=== PATIENT | female | born 1995 | race Caucasian/White ===

== ENCOUNTER 2020-01-25 15:49 | Day surgery (SDC) | payer BC ==
[2020-01-25] MEDS ORDERED: hydrALAZINE 20 MG/ML VIAL SLOW IVP PRN (15:52)
[2020-01-25 16:02] VITALS: BP 127/89; TEMP 98.7; BMI 28.5
[2020-01-25 16:23] LABS: Amnisure Internal Control QC ACCEPTABLE (ACCEPTABLE); Amnisure Test No Membranes Rupture (No Rupture)
--- NOTE | 2020-01-25 17:10 | PDOC.LDHP ---
Labor and Delivery H&P Chief complaint: loss of fluid HPI: 24 y/o G1 at 38w1d, patient of Dr. Lemus, presents with ?LOF since . She reports several episodes of a small amount of wetness in her underwear since that time. Denies large gush or constant leaking. Denies VB, ctx, or decreased FM. ROS neg for HEENT, cv, pulm, gi, gu, neuro, psych, skin, musculoskeletal or constitutional symptoms other than mentioned above. OB History Details: First Current complications: none Past Medical History: None Current medications: pre-jona vitamins Previous surgical history: other (tonsillectomy, left knee) Allergies/Adverse Reactions: Allergies Allergy/AdvReac Type Severity Reaction Status Date / Time No Known Allergies Allergy Verified 01/25/20 15:56 Social history: none - Physical Exam Vital signs reviewed and normal: yes General: NAD, resting Lungs: nonlabored breathing Abdomen: gravid Extremeties: no edema FHT: category 1 (140s, mod variability, + accels, no decels) [place] contractions every: intermittent - Vaginal Exam cm dilated: 3 Effacement: 50% Station: -2 - Assessment 24 y/o G1 at 38w1d with no e/o SROM. Amnisure neg, no pooling, neg valsalva. Bedside ultrasound performed with normal DARLENE (11cm). status reassuring with reactive NST. - Plan -: D/c home with precautions. Advised to keep all appointments.
== END 2020-01-25 17:05 | disposition home or self-care (01) ==
LOC: L&D/OP 15:49
PROVIDERS: ATTEND Obstetrics & Gynecology
DX: O99.89 Other specified diseases and conditions complicating pregnancy, childbirth and the puerperium (principal); N89.8 Other specified noninflammatory disorders of vagina; Z3A.38 38 weeks gestation of pregnancy
CPT/HCPCS: 84112

== ENCOUNTER 2020-02-03 21:42 | Day surgery (SDC) | payer BC ==
[2020-02-03 22:27] VITALS: BMI 28.5
[2020-02-03] MEDS ORDERED: hydrALAZINE 20 MG/ML VIAL SLOW IVP PRN (23:30)
--- NOTE | 2020-02-04 00:25 | PRG ---
DATE OF SERVICE: 02/03/2020 [employer]: Ramon Lemus DO, MS. CHIEF COMPLAINT: Abdominal pains. HISTORY OF PRESENT ILLNESS: The patient is a 24-year-old G1, P0 female with an intrauterine at 39 weeks and 3 days, presenting to Labor and Delivery with uterine contractions. She reports that prior to coming, they were 3 to 5 minutes apart and were more intense. Since arriving, the patient reports the contractions have spaced some and are less intense. She denies any vaginal bleeding, but she does report a large amount of mucousy discharge the last several days. Has been having diarrhea off and on. She denies any other leakage of fluid. The patient also denies fever, headache, cough, chest pain, shortness of breath, nausea, vomiting, constipation, any new rashes. She does report some hip problems and lower back problems that she attributes to the . Denies urinary urgency or frequency. PAST MEDICAL HISTORY: Negative. PAST SURGICAL HISTORY: She has had tonsillectomy and has had a meniscectomy of her left knee. ALLERGIES: NO KNOWN DRUG ALLERGIES. MEDICATIONS: vitamins. SOCIAL HISTORY: Denies drug, alcohol, or tobacco use. OBSTETRICAL LABS: Blood type is Rh positive. Antibody screen is negative. VDRL is nonreactive. Hepatitis B surface antigen nonreactive, and HIV nonreactive in the 1st trimester. She is rubella immune. GC and chlamydia negative. Drug screen is negative. Diabetes screen is 99. Third trimester HIV and VDRL are negative. GBS is negative. REVIEW OF SYSTEMS: Per HPI. PHYSICAL EXAMINATION: VITAL SIGNS: Blood pressure 127/89, heart rate of 73, respiratory rate 18 saturating 98% on room air, temperature 98.4. GENERAL: She appears to be in no acute distress. She is alert, oriented, cooperative, and pleasant to interact with. HEAD: Normocephalic, atraumatic. LUNGS: Clear to auscultation bilaterally. HEART: Regular rate and rhythm. ABDOMEN: Gravid, soft, nontender. EXTREMITIES: Nontender, nonedematous. CERVICAL: Per nursing staff is 3, 50, and -2 station, unchanged from 9 days ago. heart tracing shows the fetus with a baseline in the 140s with moderate long-term variability, positive 15 x 15 accelerations. She is having contractions about every 2 minutes. ASSESSMENT AND PLAN: The patient is a 24-year-old G1, P0 female with an intrauterine at 39 weeks and 3 days, here to evaluate for labor. The patient is having regular painful contractions, but has no other evidence of active labor at this time. We will be watching her for the next 2 to 3 hours and we will reexamine her cervix and make disposition at that time. Fetus has a category 1 tracing and reactive NST. pt discharge home with no evidence of labor Job ID: [id number] [facility]
== END 2020-02-04 01:15 | disposition home or self-care (01) ==
LOC: L&D/OP 21:42
PROVIDERS: ATTEND Obstetrics & Gynecology
DX: O47.1 False labor at or after 37 completed weeks of gestation (principal); Z3A.39 39 weeks gestation of pregnancy
CPT/HCPCS: 99283

== ENCOUNTER 2020-02-05 05:14 | Inpatient (IN) | payer BC ==
[2020-02-05] MEDS ORDERED: Promethazine HCl 25 MG/ML VIAL IM PRN ×2 (05:39→06:31)
[2020-02-05] MEDS ORDERED: Misoprostol 200 MCG TAB PR PRN (05:39)
[2020-02-05] MEDS ORDERED: Carboprost 250 MCG/ML AMP IM PRN (05:39)
[2020-02-05] MEDS ORDERED: Ibuprofen 800 MG TAB PO PRN (05:39)
[2020-02-05] MEDS ORDERED: Acetaminophen 500 MG TAB PO PRN (05:39)
[2020-02-05] MEDS ORDERED: Ondansetron PF 4 MG/2 ML Vial IVP PRN ×3 (05:39→12:41)
[2020-02-05] MEDS ORDERED: HYDROcodone/Acetaminophen 5/325 mg Tablet PO PRN ×3 (05:39→12:41)
[2020-02-05] MEDS ORDERED: NS / Oxytocin 40 units/1000ml 1,000 ML IV PRN (05:39)
[2020-02-05] MEDS ORDERED: Diphenoxylate HCl/Atropine Tablet PO PRN (05:39)
[2020-02-05] MEDS ORDERED: Butorphanol Tartrate 1 MG/ML VIAL SLOW IVP PRN (05:39)
[2020-02-05] MEDS ORDERED: Lidocaine 1% (PF) 30 ML VIAL SC PRN (05:39)
[2020-02-05] MEDS ORDERED: hydrALAZINE 20 MG/ML VIAL SLOW IVP PRN ×2 (05:39→12:41)
[2020-02-05] MEDS: Lactated Ringer's 1,000 ML IV SCH ×2 (05:40→06:20)
[2020-02-05] MEDS ORDERED: Fentanyl 4 mcg/Bup 0.1% Cadd 100 ML ONE (05:45)
[2020-02-05] MEDS ORDERED: NS w/ Oxytocin 10 units 500 ML IV SCH (05:45)
[2020-02-05] MEDS ORDERED: Penicillin G Potassium 5 MILL.UNITS VIAL ONE (05:46)
[2020-02-05 05:49] VITALS: BMI 28.5
--- NOTE | 2020-02-05 05:49 | PDOC.LDHP ---
Labor and Delivery H&P Chief complaint: contractions HPI: Painful contractions...24 y/o at 39-40 weeks[address] Chio silverioDenies lof. Current gestational age (weeks): 39 Due date: 02/07/20 Dating criteria: last menstrual period Grav: 1 Para: 0 Current complications: none Abnormal US findings: No Current medications: pre-jona vitamins Previous surgical history: none Allergies/Adverse Reactions: Allergies Allergy/AdvReac Type Severity Reaction Status Date / Time No Known Allergies Allergy Verified 01/25/20 15:56 Social history: none - Physical Exam General: breathing through contractions Heart: RRR Lungs: nonlabored breathing Abdomen: NTTP Extremeties: no edema FHT: category 1 - Vaginal Exam cm dilated: 4 Effacement: 100% Station: -1 - OB Labs RH: positive Antibody Screen: negative HIV: negative RPR: negative HEPSAg: negative 1 hour GCT: negative GBS: negative Urine drug screen: negative Rubella: immune - Assessment L&D Assessment: term patient in labor - Plan Plan: admit to L&D, labor augmentation if indicated, anesthesia consult for pain management
[2020-02-05 05:59] LABS: Hemoglobin 13.1 g/dL (12.0-16.0); Mean Corpuscular HGB CONC 33.8 g/dL (32.0-36.0); Mean Corpuscular Hemoglobin 30.2 pg (27.0-31.0); Mean Corpuscular Volume 89.3 fL (78.0-98.0); Platelet Count 198 thou/uL (130-400); RBC Distribution Width 12.8 % (11.5-14.5); Red Blood Cell (RBC) Count 4.34 mill/uL (4.20-5.40)
[2020-02-05] MEDS ORDERED: diphenhydrAMINE 50 MG/ML VIAL IVP PRN (06:31)
[2020-02-05] MEDS ORDERED: Lactated Ringer's 500 ML IV PRN (06:31)
[2020-02-05] MEDS ORDERED: Naloxone HCl 0.4 mg/ml Vial IVP PRN ×2 (06:31)
[2020-02-05] MEDS ORDERED: Acetaminophen 325 MG TAB PO PRN (06:31)
[2020-02-05] MEDS ORDERED: EPHEDRINE 25 MG/5 ML SYRINGE SLOW IVP PRN (06:31)
[2020-02-05 06:40] LABS: Syphilis Antibody Nonreactive (Nonreactive); Syphilis Antibody Index 0.02 S/CO (<1.00 Non-Reactive)
[2020-02-05 06:41] LABS: HBSAg Index 0.19 S/CO (0-0.99); Hep B Surf Ag Non-Reactive S/CO (NonReactive)
[2020-02-05] MEDS ORDERED: Fentanyl 4 mcg/Bupivacaine 0.1% Cassette 100 ML EPIDURAL SCH (06:45)
[2020-02-05] MEDS ORDERED: Communication Order-Pharmacy FS SCH (06:45)
--- NOTE | 2020-02-05 09:49 | PDOC.OPDEL ---
OB Operative/Delivery Note Delivery Dr/Surgeon: Allan Pre-Delivery Diagnosis: active labor Procedure/Post Delivery Dx: spontaneous vaginal delivery Weeks gestation: 39 Anesthesia: epidural - Findings A Sex: male - 1 min: 8 - 5 min: 9 - Additional Findings/Plan Placenta delivered: spontaneous Repaired Obstetrical Laceration: 2nd degree Estimated blood loss: 100ml Compilations/Other Findings: lose nuchal and meconium noted Post delivery plan: routine recovery
[2020-02-05] MEDS ORDERED: Benzocaine-Menthol 82.5 ML CAN TOP PRN (12:41)
[2020-02-05] MEDS ORDERED: Bisacodyl 10 MG SUPP PR PRN (12:41)
[2020-02-05] MEDS ORDERED: Preparation H Ointment 28 GM TUBE PR PRN (12:41)
[2020-02-05] MEDS ORDERED: diphenhydrAMINE 25 MG CAP PO PRN (12:41)
[2020-02-05] MEDS ORDERED: NS / Oxytocin 40 units/1000ml 1,000 ML IV SCH (12:41)
[2020-02-05] MEDS ORDERED: Lanolin Ointment 7 GM TUBE TOP PRN (12:41)
[2020-02-05] MEDS ORDERED: Milk Of Magnesia 30 ML UDCUP PO PRN (12:41)
[2020-02-05] MEDS: Ibuprofen 800 MG TAB PO SCH ×2 (15:37→18:34)
[2020-02-05] MEDS: Ferrous Sulfate 325 MG TAB PO SCH (18:08)
[2020-02-05] MEDS: Docusate Calcium (SURFAK) 240 MG CAP PO SCH (22:03)
[2020-02-06] MEDS: Ibuprofen 800 MG TAB PO SCH ×2 (02:44→10:49)
[2020-02-06 07:54] VITALS: BP 127/83; TEMP 98
[2020-02-06] MEDS: Ferrous Sulfate 325 MG TAB PO SCH (08:16)
[2020-02-06] MEDS: Docusate Calcium (SURFAK) 240 MG CAP PO SCH (08:30)
[2020-02-06] MEDS ORDERED: Adacel (T-DAP) 0.5 ML SYRINGE IM ONE (09:00)
[2020-02-06] MEDS ORDERED: Prenatal Vitamin 1 TAB PO SCH (09:00)
--- NOTE | 2020-02-06 09:49 | PDOC.PP ---
Post Progress Note Post Day #: 1 Subjective: doing well, no concerns, latching well, min bleeding or pain PO intake tolerated: yes Flatus: yes Ambulation: yes Vital Signs (12 hours) Temp Pulse Resp BP Pulse Ox 02/06/20 07:53 98.0 F 70 20 127/83 96 02/06/20 04:15 98.2 F 69 16 122/76 02/06/20 00:05 98.5 F 69 16 116/70 Weight Weight 188 lb - Physical Examination General: NAD Respiratory: non-labored breathing Abdominal: no distention Fundus firm & at: below umb Neurological: no gross focal deficits Psychiatric: A&Ox3, normal affect Result Diagrams: 02/05/20 05:49 Additional Labs: Post Labs Blood Type A POSITIVE 02/05/20 05:49 Hep Bs Antigen Non-Reactive S/CO (NonReactive) 02/05/20 05:49 (1) Vaginal delivery Code(s): O80 - ENCOUNTER FOR FULL-TERM UNCOMPLICATED DELIVERY Status: Acute (2) 39 weeks gestation of Code(s): Z3A.39 - 39 WEEKS GESTATION OF Status: Acute - Assessment/Plan PPD1 doing well, no concerns, plans for DC today.
== END 2020-02-06 17:10 | disposition home or self-care (01) | DRG 807 ==
LOC: L&D/OP 05:14 → L&D 05:44 → 3SE 14:59
PROVIDERS: ADMIT Obstetrics & Gynecology; ATTEND Obstetrics & Gynecology
PROC: 10E0XZZ Delivery of Products of Conception, External Approach (ICD-10-PCS; principal; 2020-02-05)
PROC: 0KQM0ZZ Repair Perineum Muscle, Open Approach (ICD-10-PCS; 2020-02-05)
DX: O69.81X0 Labor and delivery complicated by cord around neck, without compression, not applicable or unspecified (principal); Z37.0 Single live birth; O77.0 Labor and delivery complicated by meconium in amniotic fluid; O70.1 Second degree perineal laceration during delivery; Z3A.39 39 weeks gestation of pregnancy
CPT/HCPCS: 36415; 51702; 85027; 86780; 86850; 86900; 86901; 87340; 99283; J2540